=== PATIENT | male | born 1995 | race Caucasian/White ===

== ENCOUNTER 2023-08-13 02:08 | Emergency (ER) | payer MEDICAID ==
[~2023-08-13] VITALS: Ht 175.3 cm; Wt 90.0 kg
[2023-08-13 02:15] VITALS: O2SAT 99
[2023-08-13] MEDS: ACETAMINOPHEN 325MG TABLET PO ONE (02:15)
[2023-08-13] MEDS ORDERED: ACET-2708 MT (03:52)
[2023-08-13 04:30] VITALS: BP 129/78; PULSE 68; RESP 18; TEMP 98.5
== END 2023-08-13 04:30 | disposition home or self-care (01) ==
LOC: ER 02:39
DX: S80.02XA Contusion of left knee, initial encounter (principal); S09.90XA Unspecified injury of head, initial encounter; I10 Essential (primary) hypertension; Z00.00 Encounter for general adult medical examination without abnormal findings; Y04.0XXA Assault by unarmed brawl or fight, initial encounter; Y93.89 Activity, other specified; Y92.89 Other specified places as the place of occurrence of the external cause; Y99.8 Other external cause status
CPT/HCPCS: 73562; 99284